=== PATIENT | female | born 1950 | race Caucasian/White ===

== ENCOUNTER → 2023-12-05 10:30 | Outpatient (REF) | payer MEDICARE, BC, SELFPAY | LOC: HWRAD 10:30 | PROVIDERS: ATTENDING PHYSICIAN Specialist; FAMILY PHYSICIAN Physician Assistant Medical | DX: M25.511 Pain in right shoulder (principal) | CPT/HCPCS: 73200 ==

== ENCOUNTER → 2023-12-13 10:52 | Outpatient (REF) | payer MEDICARE, BC, SELFPAY | LOC: WDC 10:52 | PROVIDERS: ATTENDING PHYSICIAN Family Medicine Geriatric Medicine; FAMILY PHYSICIAN Physician Assistant Medical | DX: Z12.31 Encounter for screening mammogram for malignant neoplasm of breast (principal) | CPT/HCPCS: 77063; 77067 ==

== ENCOUNTER 2023-12-23 05:51 | Day surgery (SDC) | payer MEDICARE, BC, SELFPAY ==
--- NOTE | 2023-11-24 12:01 | CM ---
Patient is scheduled for an elective R Reverse TSA on 12/23/23- she is a same day patient. Spoke with patient prior to surgery. Patient had a L TKR at in 2021. Reintroduced role of Orthopedic Navigator. Patient reports that she lives with her
in a one floor in law suite at her daughter's home (one step to enter). Currently she functions independently. She does not use any DME. She had VN services through [facility]. PCP is Dahlia Adams.
Discussed orthopedic program and post surgical plans. Patient will return home when directed by surgeon. Reviewed MD follow up and transition to outpatient therapy. Patient is in agreement with tentative plan and states that her , her
daughter and daughter's family will be home with her and can assist if needed.
Patient will complete online education.
Plan: Orthopedic Navigator will be involved in the care of patient after surgery and will reassess discharge needs at that time.
[2023-11-30 09:04] VITALS: BMI 33.3
[2023-11-30 09:58] LABS: Hematocrit 40.5 % (37.0-47.0); Hemoglobin 13.9 g/dL (12.0-16.0); Mean Corp Hgb Conc. 34.3 g/dL (33.0-37.0); Mean Corpuscular Hgb 33.1 pg (27.0-31.0); Mean Corpuscular Volume 96.4 fL (81.0-99.0); Mean Platelet Volume 9.4 fL (7.4-10.4); Platelet Count 309 10^3/uL (130-400); Red Cell Dist. Width 12.3 % (11.5-14.5); White Blood Cell Count 5.5 10^3/uL (4.8-10.8)
[2023-11-30 11:05] LABS: Glycohemoglobin (HgbA1c) 5.9 % (4.0-5.6)
[2023-11-30 12:37] LABS: ALT (SGPT) 16 U/L (0-35); AST (SGOT) 24 U/L (14-36); Albumin 4.4 g/dl (3.5-5.0); Alkaline Phosphatase 55 U/L (38-126); Blood Urea Nitrogen 17 mg/dl (7-17); Calcium 10.1 mg/dl (8.4-10.2); Carbon Dioxide 31 mmol/L (22-30); Chloride 97 mmol/L (98-107); Estimated Creatinine Clearance 88 ml/min; Glucose 98 mg/dl (70-99); Potassium 4.4 mmol/L (3.5-5.1); Sodium 139 mmol/L (135-145); Total Bilirubin 0.5 mg/dl (0.2-1.3); Total Protein 7.3 g/dl (6.3-8.2); eGFR > 60.00
[2023-11-30 14:11] VITALS: BMI 33.3
[2023-12-23] VITALS (12 sets, daily range): BP systolic 105–143; BP diastolic 47–84
[2023-12-23] MEDS: TYLENOL 1000 MG PO (06:30)
[2023-12-23] MEDS: CELEBREX 200 MG PO (06:30)
--- NOTE | 2023-12-23 06:32 | W.DS.TRANS ---
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
-
Discharge Instructions:
Sleep Apnea Risk Low
Discharge Diagnosis/Procedures R Reverse TSA Dr. Garcia 12/23/23
Diet Diabetic, Carb Controlled
Activity No strenuous activity
Driving Restrictions No driving
Instructions:
Stand-Alone Forms: SDS Total Shoulder D/C Inst.
Changes to Home Medications: Yes
Discharge Medications:
DC Medications w/original date entered in [facility]
bimatoprost 0.01 % eye drops (Lumigan) 1 drp BOTH EYES HS Eye condition 09/22/17
levothyroxine 50 mcg tablet 50 mcg PO DAILY Thyroid 09/27/17
melatonin 5 mg tablet 5 mg PO PRN PRN sleep 03/20/21
timolol 0.25 % eye drops (Betimol) 1 drp BOTH EYES BID Eye condition 03/20/21
Nature Made Daily Diabetes 1 packet PO DAILY 11/25/23
atorvastatin 20 mg tablet 20 mg PO DAILY 11/25/23
inulin 2 gram chewable tablet (Fiber Gummies) 15 g PO PRN PRN Constipation 11/25/23
letrozole 2.5 mg tablet 2.5 mg PO QPM 11/25/23
lisinopril 20 mg-hydrochlorothiazide 25 mg tablet 1 tab PO DAILY 11/25/23
omeprazole 20 mg tablet,delayed release 20 mg PO DAILY 11/25/23
semaglutide 0.25 mg or 0.5 mg (2 mg/3 mL) subcutaneous pen injector (Ozempic) 0.5 mg SC DE LEON 11/25/23
sertraline 50 mg tablet 50 mg PO DAILY 11/25/23
hydrocodone 5 mg-acetaminophen 325 mg tablet 1 tab PO Q6H PRN 1 tab moderate pain or 2 if severe #30 tabs 11/30/23
meloxicam 15 mg tablet 15 mg PO DAILY anti-inflammatory #14 tabs 11/30/23
mupirocin 2 % topical ointment 1 applic topical BID infection prevention #1 tube 11/30/23
acetaminophen 325 mg capsule (Tylenol) 650 mg (2 x 325 mg) PO QID #2 caps 12/23/23
amlodipine 2.5 mg tablet 2.5 mg PO QPM #0 tabs 12/23/23
aspirin 325 mg tablet 325 mg PO DAILY blood clot prevention #1 tab 12/23/23
docusate sodium 100 mg capsule (Colace) 100 mg PO BID stool softner #1 cap 12/23/23
magnesium hydroxide 400 mg/5 mL oral suspension (Milk of Magnesia) 30 ml PO HS PRN Constipation #1 mL 12/23/23
sennosides 8.6 mg tablet (Senokot) 17.2 mg (2 x 8.6 mg) PO BID laxative #2 tabs 12/23/23
Home Medication Changes
hydrocodone 5 mg-acetaminophen 325 mg tablet 1 tab PO Q6H PRN 1 tab moderate pain or 2 if severe #30 tabs 11/30/23
meloxicam 15 mg tablet 15 mg PO DAILY anti-inflammatory #14 tabs 11/30/23
mupirocin 2 % topical ointment 1 applic topical BID infection prevention #1 tube 11/30/23
Doxycycline
Florastor
Pending Results: No
[2023-12-23 06:41] LABS: Glucose - Point of Care 104 mg/dl (70-99)
[2023-12-23] MEDS: NORMOSOL-R 1000 IV (06:44)
[2023-12-23 10:03] LABS: Glucose - Point of Care 148 mg/dl (70-99)
[2023-12-23] MEDS: SUBLIMAZE 50 MCG IV (10:18)
[2023-12-23] MEDS: ANCEF 5 IV (12:20)
== END 2023-12-23 12:44 | disposition home or self-care (01) ==
LOC: SDS 05:51
PROVIDERS: ATTENDING PHYSICIAN Specialist; FAMILY PHYSICIAN Physician Assistant Medical; OTHER PHYSICIAN Physician Assistant Medical
DX: M19.011 Primary osteoarthritis, right shoulder (principal); M25.711 Osteophyte, right shoulder
CPT/HCPCS: 23472; C1776; C1713; 36415; 73020; 80053; 82962; 83036; 85027; 87070; 93005

== ENCOUNTER 2024-01-26 13:20 | Outpatient (RCR) | payer MEDICARE, BC, SELFPAY | END 2024-01-26 23:59 | disposition home or self-care (01) | LOC: RPT 13:20 | PROVIDERS: ATTENDING PHYSICIAN Specialist; FAMILY PHYSICIAN Physician Assistant Medical | DX: Z47.1 Aftercare following joint replacement surgery (principal); Z96.611 Presence of right artificial shoulder joint | CPT/HCPCS: 97010; 97110; 97161 ==

== ENCOUNTER 2024-02-07 12:42 | Outpatient (RCR) | payer MEDICARE, BC, SELFPAY | END 2024-02-07 23:59 | disposition home or self-care (01) | LOC: RPT 12:42 | PROVIDERS: ATTENDING PHYSICIAN Specialist; FAMILY PHYSICIAN Physician Assistant Medical | DX: Z47.1 Aftercare following joint replacement surgery (principal); Z96.611 Presence of right artificial shoulder joint | CPT/HCPCS: 97010; 97110 ==

== ENCOUNTER → 2024-02-13 14:29 | Outpatient (REF) | payer MEDICARE, BC, SELFPAY | LOC: RAD 14:29 | PROVIDERS: ATTENDING PHYSICIAN Physician Assistant Surgical; FAMILY PHYSICIAN Physician Assistant Medical | DX: R60.0 Localized edema (principal); Z96.611 Presence of right artificial shoulder joint; Z86.711 Personal history of pulmonary embolism; E11.9 Type 2 diabetes mellitus without complications; R22.2 Localized swelling, mass and lump, trunk | CPT/HCPCS: 93971 ==

== ENCOUNTER 2024-03-07 15:07 | Outpatient (RCR) | payer MEDICARE, BC, SELFPAY | END 2024-03-07 23:59 | disposition home or self-care (01) | LOC: RPT 15:07 | PROVIDERS: ATTENDING PHYSICIAN Specialist; FAMILY PHYSICIAN Physician Assistant Medical | DX: Z47.1 Aftercare following joint replacement surgery (principal); Z96.611 Presence of right artificial shoulder joint; M25.611 Stiffness of right shoulder, not elsewhere classified; M62.81 Muscle weakness (generalized); Z73.6 Limitation of activities due to disability | CPT/HCPCS: 97110; 97140 ==

== ENCOUNTER 2024-03-13 12:44 | Outpatient (RCR) | payer MEDICARE, BC, SELFPAY | END 2024-03-13 23:59 | disposition home or self-care (01) | LOC: RPT 12:44 | PROVIDERS: ATTENDING PHYSICIAN Physician Assistant Medical | DX: R42 Dizziness and giddiness (principal); Z73.6 Limitation of activities due to disability | CPT/HCPCS: 97112; 97162 ==

== ENCOUNTER 2024-04-11 13:50 | Outpatient (RCR) | payer MEDICARE, BC, SELFPAY | END 2024-04-11 23:59 | disposition home or self-care (01) | LOC: RPT 13:50 | PROVIDERS: ATTENDING PHYSICIAN Physician Assistant Medical | DX: R42 Dizziness and giddiness (principal); Z73.6 Limitation of activities due to disability | CPT/HCPCS: 97112 ==

== ENCOUNTER → 2024-04-19 10:47 | Outpatient (REF) | payer MEDICARE, BC, SELFPAY | LOC: PAVMRI 10:47 | PROVIDERS: ATTENDING PHYSICIAN Physician Assistant Medical | DX: R42 Dizziness and giddiness (principal) | CPT/HCPCS: 70553; A9575 ==

== ENCOUNTER → 2024-12-14 11:09 | Outpatient (REF) | payer MEDICARE, BC, SELFPAY | LOC: WDC 11:09 | PROVIDERS: ATTENDING PHYSICIAN Family Medicine Geriatric Medicine; FAMILY PHYSICIAN Student in an Organized Health Care Education/Training Program | DX: Z12.31 Encounter for screening mammogram for malignant neoplasm of breast (principal) | CPT/HCPCS: 77063; 77067 ==